=== PATIENT | male | born 1975 | race Caucasian/White ===

== ENCOUNTER 2020-07-11 16:43 | Emergency (ER) | payer BC ==
--- NOTE | 2020-07-11 16:46 | EDM.PDOC ---
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 influenza boosters. Qualifiers: Fever type: unspecified Qualified Code(s): R50.9 - Fever, unspecified (2) Hypokalemia SNOMED Code(s): 47247898 Code(s): E87.6 - HYPOKALEMIA Status: Acute Priority: Medium Current Visit: Yes Onset Date: 07/11/20 Annotation/Comment:: Mild hypokalemia and hyponatremia likely secondary to his anorexia, fever, and mild dehydration. 1 L of lactated Ringer's given in the emergency room as above. (3) Hyponatremia SNOMED Code(s): 63262557 Code(s): E87.1 - HYPO-OSMOLALITY AND HYPONATREMIA Status: Acute Priority: Medium Current Visit: Yes Onset Date: 07/11/20 Annotation/Comment:: As above (4) Mixed anxiety and depressive disorder SNOMED Code(s): 528375912 Code(s): F41.8 - OTHER SPECIFIED ANXIETY DISORDERS Status: Chronic Priority: Medium Current Visit: Yes Annotation/Comment:: Moderate control based on today's exam. Continue to observe closely by his regular provider. (5) Osteoarthritis SNOMED Code(s): 501395256 Code(s): M19.90 - UNSPECIFIED OSTEOARTHRITIS, UNSPECIFIED SITE Status: Chronic Priority: Medium Current Visit: Yes Annotation/Comment:: Nonspecific low back pain and bilateral hip pain with no history of fall, injury, etc. IV Toradol given in the emergency room as above. Otherwise symptomatic relief as per discharge instructions. Patient may use his current Ativan therapy as a muscle relaxant. IV diazepam was also given in the emergency room with sedation precautions given. Qualifiers: Osteoarthritis location: multiple joints Osteoarthritis type: primary Qualified Code(s): M89.49 - Other hypertrophic osteoarthropathy, multiple sites (6) Peptic reflux disease SNOMED Code(s): 112231995 Code(s): K21.9 - GASTRO-ESOPHAGEAL REFLUX DISEASE WITHOUT ESOPHAGITIS Status: Chronic Priority: Medium Current Visit: Yes Annotation/Comment:: Stable by patient history despite his history of anorexia. High-dose IV Pepcid and IV Protonix given in the emergency room. (7) Renal insufficiency SNOMED Code(s): 265544438, 090539930 Code(s): N28.9 - DISORDER OF KIDNEY AND URETER, UNSPECIFIED Status: Acute Priority: Medium Current Visit: Yes Onset Date: 07/11/20 Annotation/Comment:: Likely secondary to his recent fever, anorexia, etc. as above. IV lactated Ringer's given as above. No previous history of renal insufficiency. Observe for now. Consider repeat renal panel at follow-up visit depending on his clinical course. - Problem List Review Problem List Initiated/Reviewed/Updated: Yes - My Orders Last 24 Hours: My Active Orders 07/11/20 Breakfast Nothing Per Oral Diet [DIET] 07/11/20 16:46 Obtain Past Medical Record [OM.PC] Routine 07/11/20 16:47 Isolation [COMM] Routine 07/11/20 17:08 Abdomen Series w Chest 1V [CR] Stat CULTURE URINE [RM] Stat Sodium Chloride 0.9% [Saline Flush] 10 ml FLUSH ASDIRECTED PRN Blood Culture x2 Reflex Set [OM.PC] Urgent Obtain Past Medical Record [OM.PC] Urgent Peripheral IV Insertion Adult [OM.PC] Stat Resuscitation Status Stat 07/11/20 17:10 Cardiac Monitoring [RC] . DIRECTED Peripheral IV Care [RC] . DIRECTED 07/11/20 17:20 CULTURE BLOOD [BC] Stat 07/11/20 17:27 CULTURE BLOOD [BC] Stat - Assessment/Plan Last 24 Hours: My Active Orders 07/11/20 Breakfast Nothing Per Oral Diet [DIET] 07/11/20 16:46 Obtain Past Medical Record [OM.PC] Routine 07/11/20 16:47 Isolation [COMM] Routine 07/11/20 17:08 Abdomen Series w Chest 1V [CR] Stat CULTURE URINE [RM] Stat Sodium Chloride 0.9% [Saline Flush] 10 ml FLUSH ASDIRECTED PRN Blood Culture x2 Reflex Set [OM.PC] Urgent Obtain Past Medical Record [OM.PC] Urgent Peripheral IV Insertion Adult [OM.PC] Stat Resuscitation Status Stat 07/11/20 17:10 Cardiac Monitoring [RC] . DIRECTED Peripheral IV Care [RC] . DIRECTED 07/11/20 17:20 CULTURE BLOOD [BC] Stat 07/11/20 17:27 CULTURE BLOOD [BC] Stat Assessment:: As above Plan: As above. Extensive precautions were given to the patient, who is in agreement with the treatment plan. See Patient Instructions for further treatment and plan.
[2020-07-11] MEDS ORDERED: Famotidine 20 MG/2 ML SDV IVPUSH ONE (17:08)
[2020-07-11] MEDS ORDERED: cefTRIAXone 1 GM in Sodium Chloride 0.9% 100 ML IV ONE (17:08)
[2020-07-11] MEDS ORDERED: Lactated Ringers 1,000 ML IV ONE (17:08)
[2020-07-11] MEDS ORDERED: Sodium Chloride 0.9% 10 ML Syringe FLUSH PRN (17:08)
[2020-07-11] MEDS ORDERED: Pantoprazole 40 MG Vial IVPUSH ONE (17:08)
[2020-07-11 17:48] LABS: PTT,PARTIAL THROMBOPLSTIN TIME 28.3 SEC (24.5-32.8)
[2020-07-11 17:51] LABS: CHLORIDE,CL 95 mmol/L (98-107); SODIUM,NA 135 mmol/L (136-145)
[2020-07-11] MEDS ORDERED: Ketorolac 30 MG/ML SDV IVPUSH ONE (17:53)
== END 2020-07-11 19:20 | disposition home or self-care (01) ==
LOC: LL.ED 16:43
DX: E87.1 Hypo-osmolality and hyponatremia (principal); K21.9 Gastro-esophageal reflux disease without esophagitis; F41.8 Other specified anxiety disorders; E87.6 Hypokalemia; R50.9 Fever, unspecified; N28.9 Disorder of kidney and ureter, unspecified; M89.49 Other hypertrophic osteoarthropathy, multiple sites; Z20.822 Contact with and (suspected) exposure to COVID-19; Z79.899 Other long term (current) drug therapy
CPT/HCPCS: 36415; 74022; 80053; 81001; 82150; 83605; 83690; 83735; 84550; 85025; 85610; 85730; 87040; 87086; 87426; 87804; 96365; 96375; 99284-25; C9113; J0696; J1885; J3360; J3490; J7120; U0002

== ENCOUNTER 2021-04-06 16:29 | Emergency (ER) | payer BC ==
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
[2021-04-06] MEDS ORDERED: Lidocaine 2% with EPINEPHrine 1:100,000 20 ML MDV INJECT ONE (16:54)
== END 2021-04-06 17:35 | disposition home or self-care (01) ==
LOC: LL.ED 16:29
DX: S01.112A Laceration without foreign body of left eyelid and periocular area, initial encounter (principal); W22.09XA Striking against other stationary object, initial encounter
CPT/HCPCS: 12013; 99282-25